=== PATIENT | male | born 1940 | race Caucasian/White ===

== ENCOUNTER 2018-03-21 05:38 | Outpatient (CLI) | payer MEDICARE ==
[~2018-03-21] VITALS: Ht 180.3 cm; Wt 83.0 kg
[2018-03-21] MEDS ORDERED: OLME40TA18 PO (10:26)
[2018-03-21] MEDS ORDERED: ACET325T49 PO (10:26)
[2018-03-21] MEDS ORDERED: METO-370 PO (10:26)
[2018-03-21] MEDS ORDERED: DILT300C49 PO (10:26)
[2018-03-21] MEDS ORDERED: POLY17PO6 PO (10:26)
[2018-03-21] MEDS ORDERED: ATOR80TA76 PO (10:26)
[2018-03-21] MEDS ORDERED: NITR0.4T42 SL (10:26)
[2018-03-21] MEDS ORDERED: CHLO10CA6 PO (10:26)
[2018-03-21] MEDS ORDERED: CITA20TA9 PO (10:26)
[2018-03-21] MEDS ORDERED: RIVA20TA PO (10:26)
== END 2018-03-21 10:32 | disposition home or self-care (01) ==
LOC: PREOP 05:38
PROVIDERS: ATTEND Specialist
DX: Z01.818 Encounter for other preprocedural examination (principal)

== ENCOUNTER 2018-03-25 07:43 | Day surgery (SDC) | payer MEDICARE ==
[~2018-03-25] VITALS: Ht 180.3 cm; Wt 83.0 kg
[~2018-03-25 07:43] MED LIST: ACET325T49 PO; ATOR80TA76 PO; CHLO10CA6 PO; CITA20TA9 PO; DILT300C49 PO; METO-370 PO; NITR0.4T42 SL; OLME40TA18 PO; POLY17PO6 PO; RIVA20TA PO
[2018-03-25] MEDS ORDERED: BSS 15 ML IR PRN (07:45)
[2018-03-25] MEDS ORDERED: LIDOCAINE PF 1% 2 ML AMP IR PRN (07:45)
[2018-03-25] MEDS ORDERED: EPINEPHrine INJECTION 1 MG/ML AMP INJ ONE (07:45)
[2018-03-25] MEDS ORDERED: TIMOLOL MALEATE 0.5% 5 ML (TIMOPTIC) BTL OU PRN (07:45)
[2018-03-25] MEDS ORDERED: POVIDONE (BETADINE) OPHTH SOLN 5% 30 ML OP ONE (07:45)
[2018-03-25] MEDS ORDERED: MOXIFLOXACIN OPHTH SOLN 5 MG/ML 0.3 ML SYRINGE OP ONE (07:45)
[2018-03-25] MEDS: TETRACAINE 0.5% OPHTH SOLN 4 ML BTL (SINGLE DOSE ONLY) OU PRN ×3 (07:57→08:08)
[2018-03-25 08:05] VITALS: BP 154/97
[2018-03-25] MEDS: PHENYLEPHRINE 10% OPHTH (NEO-SYN) 5 ML BTL OU SCH ×3 (08:05→08:12)
[2018-03-25] MEDS: CYCLOPENTOLATE 1% (CYCLOGYL) 2 ML DROPS OP SCH ×3 (08:05→08:12)
[2018-03-25] MEDS ORDERED: MIDAZOLAM 2 MG/2 ML (VERSED) VIAL ONE (08:06)
--- NOTE | 2018-03-25 08:20 | Ophthalmologist Pre-Op Note ---
Pre-Operative Progress Note H&P Reviewed The H&P was reviewed, patient examined and no changes noted. Date H&P Reviewed: Mar 25, 2018 Time H&P Reviewed: 08:20 Pre-Op Dx Cataract, Left Eye ANNETTE JUNE MD Mar 25, 2018 08:20
--- NOTE | 2018-03-25 08:44 | Ophthalmology Operative Report ---
Cataract removal/placement IOL PREOPERATIVE DIAGNOSIS: Cataract Left Eye POSTOPERATIVE DIAGNOSIS: Cataract Left Eye PROCEDURE: Cataract removal and placement of posterior chamber implant, left eye SURGEON: Erasmo June ANESTHESIA: Topical with sedation COMPLICATIONS: None ESTIMATED BLOOD LOSS: Minimal DESCRIPTION OF PROCEDURE: After proper informed consent was obtained, the patient, a 77 male, was taken to the Operating Room and the left eye was anesthetized with tetracaine. The left eye was then prepped and draped in the usual manner. A wire lid speculum was placed. A paracentesis was made at the left hand position. Preservative free lidocaine was injected into the anterior chamber followed by viscoelastic. A clear corneal incision was made in the temporal position. A capsulorrhexis was preformed and the central nuclear and cortical material were removed. The posterior capsule was polished and an Joshua 19.5 AU00T0 IOL was placed into the capsular bag. The residual viscoelastic was aspirated and balanced saline solution was injected into the anterior chamber. Moxifloxacin was injected into the anterior chamber. The wound was checked and found to be water tight. The patient tolerated the procedure well without complications. ERASMO JUNE MD Mar 25, 2018 08:44
[2018-03-25 08:55] VITALS: BP 152/82
[2018-03-25] MEDS ORDERED: acetaZOLAMIDE ER 500 MG CAP (DIAMOX SEQUELS) PO ONE (09:00)
--- NOTE | 2018-03-25 13:17 | Anesthesia-General Post-Op ---
MAC Patient Condition Mental Status/LOC: Same as Preop Cardiovascular: Satisfactory Nausea/Vomiting: Absent Respiratory: Satisfactory Pain: Controlled Complications: Absent Post Op Complications Complications None Follow Up Care/Instructions Patient Instructions None needed. Anesthesiology Discharge Order Discharge Order Patient is doing well, no complaints, stable vital signs, no apparent adverse anesthesia problems. No complications reported per nursing. NANCY NORRIS CRNA Mar 25, 2018 13:17
== END 2018-03-25 08:55 | disposition home or self-care (01) ==
LOC: SDC 07:43
PROVIDERS: ATTEND Specialist
DX: H25.12 Age-related nuclear cataract, left eye (principal); I10 Essential (primary) hypertension; I48.91 Unspecified atrial fibrillation; Z79.01 Long term (current) use of anticoagulants; Z79.899 Other long term (current) drug therapy; Z87.891 Personal history of nicotine dependence

== ENCOUNTER 2018-04-15 05:53 | Outpatient (CLI) | payer MEDICARE | END 2018-04-15 12:40 | disposition home or self-care (01) | LOC: PREOP 05:53 | PROVIDERS: ATTEND Specialist | DX: Z01.818 Encounter for other preprocedural examination (principal) ==

== ENCOUNTER 2018-04-19 05:49 | Day surgery (SDC) | payer MEDICARE ==
[~2018-04-19] VITALS: Ht 180.3 cm; Wt 83.0 kg
[2018-04-19] MEDS: TETRACAINE 0.5% OPHTH SOLN 4 ML BTL (SINGLE DOSE ONLY) OU PRN ×4 (06:14→06:30)
[2018-04-19] MEDS ORDERED: TIMOLOL MALEATE 0.5% 5 ML (TIMOPTIC) BTL OU PRN (06:15)
[2018-04-19] MEDS ORDERED: LIDOCAINE PF 1% 2 ML AMP IR PRN (06:15)
[2018-04-19] MEDS ORDERED: MOXIFLOXACIN OPHTH SOLN 5 MG/ML 0.3 ML SYRINGE OP ONE (06:15)
[2018-04-19] MEDS ORDERED: POVIDONE (BETADINE) OPHTH SOLN 5% 30 ML OP ONE (06:15)
[2018-04-19 06:20] VITALS: BP 154/92
[2018-04-19] MEDS: PHENYLEPHRINE 10% OPHTH (NEO-SYN) 5 ML BTL OU SCH ×3 (06:21→06:30)
[2018-04-19] MEDS: CYCLOPENTOLATE 1% (CYCLOGYL) 2 ML DROPS OP SCH ×3 (06:21→06:30)
[2018-04-19] MEDS ORDERED: MIDAZOLAM 2 MG/2 ML (VERSED) VIAL ONE (06:50)
--- NOTE | 2018-04-19 06:56 | Ophthalmologist Pre-Op Note ---
Pre-Operative Progress Note H&P Reviewed The H&P was reviewed, patient examined and no changes noted. Date H&P Reviewed: Apr 19, 2018 Time H&P Reviewed: 06:55 Pre-Op Dx Cataract, Right Eye ANNETTE JUNE MD Apr 19, 2018 06:56
--- NOTE | 2018-04-19 07:23 | Ophthalmology Operative Report ---
Cataract removal/placement IOL PREOPERATIVE DIAGNOSIS: Cataract Right Eye POSTOPERATIVE DIAGNOSIS: Cataract Right Eye PROCEDURE: Cataract removal and placement of posterior chamber implant, right eye SURGEON: Erasmo June ANESTHESIA: Topical with sedation COMPLICATIONS: None ESTIMATED BLOOD LOSS: Minimal DESCRIPTION OF PROCEDURE: After proper informed consent was obtained, the patient, a 77 male, was taken to the Operating Room and the right eye was anesthetized with tetracaine. The right eye was then prepped and draped in the usual manner. A wire lid speculum was placed. A paracentesis was made at the left hand position. Preservative free lidocaine was injected into the anterior chamber followed by viscoelastic. A clear corneal incision was made in the temporal position. A capsulorrhexis was preformed and the central nuclear and cortical material were removed. The posterior capsule was polished and Joshua AU00T0 20.0 IOL was placed into the capsular bag. The residual viscoelastic was aspirated and balanced saline solution was injected into the anterior chamber. Moxifloxacin was injected into the anterior chamber. The wound was checked and found to be water tight. The patient tolerated the procedure well without complications. ERASMO JUNE MD Apr 19, 2018 07:23
[2018-04-19] MEDS ORDERED: acetaZOLAMIDE ER 500 MG CAP (DIAMOX SEQUELS) PO ONE (07:30)
[2018-04-19 07:33] VITALS: BP 103/80
--- NOTE | 2018-04-19 09:26 | Anesthesia-General Post-Op ---
MAC Patient Condition Mental Status/LOC: Same as Preop Cardiovascular: Satisfactory Nausea/Vomiting: Absent Respiratory: Satisfactory Pain: Controlled Complications: Absent Post Op Complications Complications None Follow Up Care/Instructions Patient Instructions None needed. Anesthesiology Discharge Order Discharge Order Patient is doing well, no complaints, stable vital signs, no apparent adverse anesthesia problems. No complications reported per nursing. PELON GARSIA CRNA Apr 19, 2018 09:26
== END 2018-04-19 07:33 | disposition home or self-care (01) ==
LOC: SDC 05:49
PROVIDERS: ATTEND Specialist
DX: H25.11 Age-related nuclear cataract, right eye (principal); I10 Essential (primary) hypertension; E78.00 Pure hypercholesterolemia, unspecified; I48.91 Unspecified atrial fibrillation; E78.5 Hyperlipidemia, unspecified; Z87.891 Personal history of nicotine dependence; Z80.0 Family history of malignant neoplasm of digestive organs; Z95.5 Presence of coronary angioplasty implant and graft; Z85.038 Personal history of other malignant neoplasm of large intestine; Z79.899 Other long term (current) drug therapy

== ENCOUNTER → 2022-11-14 | Outpatient (CLI) | payer MEDICARE ==
[~2022-11-14] MED LIST changes: +DILT300C38 PO; -DILT300C49 PO; -METO-370 PO; +METO50TA7 PO; -RIVA20TA PO; +RIVA20TA2 PO
--- NOTE | 2022-11-14 14:38 | Diagnostic Imaging Report ---
INDICATION: Postmenopausal screening COMPARISON: Baseline FINDINGS: AP Spine L1-L4: [BMD (g/cm2): 1.486] [T-Score: 2.1] [Z-Score: 2.7] [BMD Previous: na] [BMD % Change: na] LT Hip Neck: [BMD (g/cm2): 0.958] [T-Score: -0.9] [Z-Score: 0.7] LT Hip Total: [BMD (g/cm2):1.073] [T-Score:-0.2] [Z-Score: 0.9] [BMD Previous: na] [BMD % Change: na] RT Hip Neck: [BMD (g/cm2):0.914] [T-Score:-1.2] [Z-Score:0.3] RT Hip Total: [BMD (g/cm2):1.057] [T-score:-0.3] [Z-Score:0.8] [BMD Previous:na] [BMD % Change:na] *Indicates significant change from prior examination based on 95% confidence level. World Health Organization criteria for BMD interpretation classify patients as Normal (T-score at or above -1.0), Osteopenic (T-score between -1.0 and -2.5) or Osteoporotic (T-score at or below -2.5). LIMITATIONS AND MODIFICATION: None. FRACTURE RISK (FRAX SCORE): The ten year probability of (%): Major Osteoporotic Fracture: [10.2] Hip Fracture: [3.3] IMPRESSION: 1. Osteopenia (Low bone mass). 2. Baseline examination. 3. See below National Osteoporosis Foundation guidelines on when to potentially initiate pharmacologic therapy. Based on the National Osteoporosis Foundation Guidelines, pharmacologic treatment should be initiated in any of the following, unless clinical conditions suggest otherwise: * Any patient with prior fragility fracture of the hip or vertebrae. A spine fracture indicates 5X risk for subsequent spine fracture and 2X risk for subsequent hip fracture. * Osteoporosis (T-score <-2.5). * Postmenopausal women and men age 50 and older with low bone mass/osteopenia (T-score between -1.0 and -2.5) by DXA and 10-year major osteoporotic fracture greater than 20% or a 10-year probability of hip fracture greater than 3%. These fracture risks are supplied above in the FRAX score, if applicable. * Clinician judgement and/or patient preferences may indicate treatment for people with 10-year fracture probabilities above or below these levels. Dictated by: Dictated on workstation # [id number]
== END ==
LOC: RAD 13:27
PROVIDERS: ATTEND Pediatrics
DX: M85.80 Other specified disorders of bone density and structure, unspecified site (principal); Z87.311 Personal history of (healed) other pathological fracture
CPT/HCPCS: 77080